=== PATIENT | male | born 1965 | race Caucasian/White ===

== ENCOUNTER 2017-01-28 13:13 | Outpatient (CLI) | payer OTHER ==
--- NOTE | 2017-01-28 14:19 | DIAGNOSTIC IMAGING REPORT ---
PROCEDURE: CT ABD/PELVIS WITH CONTRAST CLINICAL INDICATION: LOWER ABD PAIN initial encounter. TECHNIQUE: 125 ml of Isovue 300 were injected intravenously and axial images were obtained of the entire abdomen and pelvis with sagittal and coronal reformations. COMPARISON: None. FINDINGS: ABDOMEN: Lung bases are clear. Heart size is normal. Normal liver size with steatosis. Gallbladder, pancreas, spleen, adrenal glands and right kidney are normal. Tiny left renal cyst. Normal abdominal aorta. Normal appendix. PELVIS: 9 cm long segment of the mid sigmoid colon with wall thickening, moderate adjacent inflammatory changes and several diverticula, consistent with diverticulitis. Small amount of free fluid but no abscess or extraluminal air. Enlarged prostate (5 cm). 2 cm left iliac sclerotic lesion. IMPRESSION: 1. Sigmoid diverticulitis with small amount of free fluid but no abscess or free air 2. Hepatic steatosis 3. Enlarged prostate 4. Left iliac sclerotic lesion which may represent 11 possibly metastasis. Correlate clinically 5. Results discussed with TISH Conway All CT scans at this facility use dose modulation, iterative reconstruction, and/or weight-based dosing when appropriate to reduce radiation dose to as low as reasonably achievable.
== END 2017-01-28 23:00 ==
LOC: CT SRH 13:13
DX: K57.32 Diverticulitis of large intestine without perforation or abscess without bleeding (principal); N40.0 Benign prostatic hyperplasia without lower urinary tract symptoms; M89.9 Disorder of bone, unspecified